=== PATIENT | female | born 1970 | race Caucasian/White ===

== ENCOUNTER → 2025-02-27 16:00 | Outpatient (BNVA) | payer BC, SELFPAY | PROVIDERS: Referring Provider Nurse Practitioner Family; Visit Provider Nurse Practitioner Women's Health | DX: N95.0 Postmenopausal bleeding (principal); N95.1 Menopausal and female climacteric states; Z01.419 Encounter for gynecological examination (general) (routine) without abnormal findings | CPT/HCPCS: 80053; 82306; 82670; 83001; 83002; 83036; 84402; 84403; 84443; 85025 ==

== ENCOUNTER → 2025-03-28 10:20 | Outpatient (BNVA) | payer BC, SELFPAY | PROVIDERS: Visit Provider Nurse Practitioner Women's Health | DX: N95.0 Postmenopausal bleeding (principal) | CPT/HCPCS: 76830 ==

== ENCOUNTER → 2025-05-16 15:00 | Outpatient (BNVA) | payer BC, SELFPAY | PROVIDERS: Visit Provider Nurse Practitioner Women's Health | DX: R53.83 Other fatigue (principal) | CPT/HCPCS: 82728; 83540 ==

== ENCOUNTER → 2025-07-14 12:19 | Outpatient (BNVA) | payer BC, SELFPAY | PROVIDERS: Visit Provider Nurse Practitioner Women's Health | DX: N91.2 Amenorrhea, unspecified (principal); N95.0 Postmenopausal bleeding; N84.1 Polyp of cervix uteri; N85.8 Other specified noninflammatory disorders of uterus | CPT/HCPCS: 88305 ==